=== PATIENT | female | born 1985 | race Caucasian/White ===

== ENCOUNTER → 2020-04-03 11:29 | Outpatient (CLI) | payer OTHER, SELFPAY ==
--- NOTE | 2020-04-03 11:32 | DI.CT.S_ITS ---
PROCEDURE: CT ABDOMEN PELVIS WO CON INDICATIONS: rule out ventral hernia, surgical planning TECHNIQUE: Noncontrast 5 mm thick sections acquired from the diaphragms to the symphysis. 5 mm coronal and sagittal reformats were then performed. For radiation dose reduction, the following was used: automated exposure control, adjustment of mA and/or kV according to patient size. COMPARISON: None. FINDINGS: Image quality: Excellent. ABDOMEN: Lung bases: Lung bases are clear. Heart size is normal. Solid organs: Liver is normal in size. Moderate hepatic steatosis is seen. Gallbladder is within normal limits. Pancreas is normal in contours. Spleen is normal in size. No adrenal nodules. Kidneys are normal in size, without hydronephrosis or nephrolithiasis. Peritoneum and bowel: Unenhanced bowel loops demonstrate normal wall thickness and caliber. No free fluid or air. Nodes and vessels: No retroperitoneal or mesenteric adenopathy by size criteria. Aorta and inferior vena cava are normal in caliber. Miscellaneous: Ventral abdominal wall defect measures up to 4.1 cm in width is seen with periumbilical hernia containing fat only. PELVIS: Genitourinary: Bladder wall thickness is normal. Miscellaneous: No inguinal hernias or adenopathy. Bones: No suspicious bony lesions. No vertebral body compression fractures. IMPRESSION: 1. Ventral abdominal wall defect measures up to 4.1 cm in width with associated periumbilical hernia containing fat only. 2. No acute inflammatory process is seen in abdomen or pelvis. 3. Moderate hepatic steatosis. Dictated by: Dusty Bowers M.D. on 04/03/2020 at 15:04 Approved by: Dusty Bowers M.D. on 04/03/2020 at 15:09
== END ==
PROVIDERS: Referring Provider Surgery; Visit Provider Surgery
DX: M62.08 Separation of muscle (nontraumatic), other site (principal); R10.9 Unspecified abdominal pain; K76.0 Fatty (change of) liver, not elsewhere classified; K42.9 Umbilical hernia without obstruction or gangrene; Z98.891 History of uterine scar from previous surgery
CPT/HCPCS: 74176

== ENCOUNTER → 2020-08-31 13:24 | Outpatient (CLI) | payer OTHER, SELFPAY ==
--- NOTE | 2020-08-31 13:33 | DIET.PN ---
Dietary Progress Note Assessment: 35y F here for help c dietary reccs for PCOS. Pt has had heavy periods since menses started, difficulty c and multiple miscarriages, only dx recently when getting c 4th live . Pt considering having another child, still unsure. Pt has been on and off metformin, went back on 500mg Metformin daily in last 2w. Pt would like medical management for her metformin to find correct dosing, recc she defer to PCP or OB. Physical Activity: 4d/w 30-40min- pt doing Beach Body Pt is [place] family, has four children and is homeschooling oldest 3 (girls 13, 10, 7, son 1.5y) Pt feels her workouts are good but diet is all over the place, she eats what the kids eat. Pt has multiple food allergies: eggs, whey, wheat, almonds, chocolate, shellfish Started using tracking jose miguel to analyze dietary intake c carb max of 130g, pt looked at dietary fiber and is getting 6g/d. Labs: FBG 90-100 Nutrition Diagnosis: altered nutrition related laboratory values r/t endocrine dysfunction aeb pt dx c PCOS, FB 90-100, pt not following any particular food plan to manage insulin resistance. Interventions: 1. Discussed effects of PCOS on weight, insulin resistance and blood sugar regulation and how pt can manage c diet and lifestyle including carb controlled diet, 13h overnight fast (when not attempting to get or being ), and daily physical activity. 2. Educated pt on plate balance to find healthy carb balance for the whole family: 1/4 PRO, 1/4 CHO, 1/2 F/V. Used food models to illustrate meals out and in balance. 3. Encouraged pts intermittent use of food tracking jose miguel to focus on total carbs and total fiber with cho goal of 100-130g/d and dietary fiber intake of 30g/d to support healthy weight, cardiovascular health, and BG regulation. Provided handout on high fiber MNT. 4. Introduced pt to [employer] for healthy meal planning and recipes created by RD which follow plate balance. 5. Encouraged pt to continue her beach body workouts as this will support her PCOS and weight goals. Monitoring/Evaluations: f/u in 1mo to assess progress and problem solve barriers, consider FMD
== END ==
PROVIDERS: PCP Family Medicine; Referring Provider Family Medicine; Visit Provider Family Medicine
DX: E28.2 Polycystic ovarian syndrome (principal); Z79.84 Long term (current) use of oral hypoglycemic drugs; Z91.012 Allergy to eggs; Z91.013 Allergy to seafood; Z91.018 Allergy to other foods; Z91.011 Allergy to milk products; Z71.3 Dietary counseling and surveillance
CPT/HCPCS: 97802

== ENCOUNTER → 2020-11-02 16:03 | Outpatient (CLI) | payer OTHER, SELFPAY ==
--- NOTE | 2020-11-02 | DI.MRI.S_ITS ---
PROCEDURE: MR KNEE RT WO CON INDICATIONS: Knee pain, knee injury. TECHNIQUE: Noncontrast sagittal PD fast spin echo and T2 fast spin echo with fat saturation, sagittal 3-D FLASH with fat saturation; coronal T1 spin echo and PD fast spin echo with fat saturation, and axial PD fast spin echo with fat saturation through the knee. COMPARISON: None. FINDINGS: Image quality: Excellent. Menisci: The medial and lateral menisci demonstrate normal morphology and internal signal. The meniscal root ligaments appear intact. Cruciate ligaments: The anterior and posterior cruciate ligaments appear intact. Medial structures: The medial collateral ligament appears intact. There is moderate T2 signal elevation surrounding the medial collateral ligament. Visualized portions of the pes anserinus tendons appear normal. No abnormal bursal fluid. Mild T2 signal elevation within the semimembranosus at the tibial insertion site. Lateral structures: The lateral collateral ligament, long and short heads of the biceps femoris tendon appear intact. The popliteus tendon appears normal. Iliotibial band appears normal. Anterior structures: The quadriceps and patellar tendons appear intact. Lateral patellar subluxation. High T2 signal intensity at the patellar insertion of the medial patellofemoral ligament. No femoral trochlear dysplasia or ventral trochlear prominence. Moderate edema in the infrapatellar fat pad. Bones and cartilage: No displaced fracture. Mild T2 signal elevation within the posteromedial aspect of the medial femoral condyle. Moderate ill-defined T2 signal elevation within the anterolateral aspect of the lateral tibial plateau. Joint space: There is a large knee joint effusion. No Orr's cyst. Normal appearing synovial plicae are incidentally noted. IMPRESSION: 1. Contusion within the lateral femoral condyle associated with lateral patellar subluxation. This may represent sequelae of recent lateral patellar dislocation. There is partial-thickness injury of the medial patellofemoral ligament at the patellar insertion site. 2. Knee joint effusion. 3. MCL strain. 4. Insertional tendinitis of the semimembranosus. 5. Possible mild contusion within the medial femoral condyle. This may also represent reactive marrow edema. Dictated by: Carlo Caba M.D. on 11/02/2020 at 16:54 Approved by: Carlo Caba M.D. on 11/02/2020 at 16:57
== END ==
PROVIDERS: PCP Family Medicine; Referring Provider Family Medicine; Visit Provider Family Medicine
DX: M25.561 Pain in right knee (principal); S80.01XA Contusion of right knee, initial encounter; S83.011A Lateral subluxation of right patella, initial encounter; S83.411A Sprain of medial collateral ligament of right knee, initial encounter; M25.461 Effusion, right knee; X58.XXXA Exposure to other specified factors, initial encounter
CPT/HCPCS: 73721